=== PATIENT | female | born 1950 | race Caucasian/White ===

== ENCOUNTER 2017-02-17 17:27 | Observation (INO) | payer OTHER ==
[~2017-02-17] VITALS: Ht 160 cm; Wt 82.0 kg
--- NOTE | 2017-02-17 17:58 | EMERGENCY ROOM VISIT NOTE ---
History Report prepared by Bharathi: Purnima Carrizales Under the Supervision of: Dr. Robe Currie M.D. First contact with patient: 17:36 Chief Complaint: CHEST PAIN Stated Complaint: CHEST PAINS Nursing Triage Summary: Pt presents with left sided chest pain intermittent for the past couple days. Worse with exertion. Today pain all day. Denies nausea, sob, dizziness or lightheaded. Took ASA yesterday. Denies recent illness. States has had a cough "for a couple years." History of Present Illness The patient is a 66 year old female who presents to the Emergency Room with complaints of intermittent chest pains for the past few days. Her pain is typically located in the center of her chest and does not radiate anywhere. She does note that one night last week she had pain into her left shoulder and down into her left arm. She states that this only happened once and resolved. Yesterday she noticed that her pain was almost completely alleviated with rest and worsened significantly with any exertion. She has had pain all day today that is worse with any exertion. The patient describes her pain as a pressure and rates it as a 6/10 at its most severe. She denies nausea, shortness of breath, lightheadedness, and dizziness. She reports that she has been under a lot of stress lately. 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 She thinks that this is exacerbating her chest pains as well. The patient called her PCP today and was advised to come to the ED for further evaluation. Source of History: patient Onset: a few days ago Position: chest Symptom Intensity: 6/10 Quality: pressure Timing: intermittent Modifying Factors (Worsening): exertion Modifying Factors (Relieving): rest Associated Symptoms: No SOB, No nausea Note: Pt denies lightheadedness and dizziness. Review of Systems All systems have been listed, reviewed, and are negative other than those previously mentioned. Please see Additional Medical History Sheet. Past Medical & Surgical Medical Problems: (1) Arthritis (2) Chest pain (3) Depression (4) Diaphragmatic hernia (5) Diastolic dysfunction (6) GERD (gastroesophageal reflux disease) (7) Hypertension (8) Mitral regurgitation Surgical Problems: (1) History of appendectomy (2) History of hysterectomy (3) History of lumbar surgery Family History Cancer Diabetes mellitus Gallbladder disease Hypertension Kidney disease Kidney stones Seizures Social History Smoking Status: Never Smoker Smokeless Tobacco Use: No Alcohol Use: none Marital Status: Housing Status: lives with significant other Occupation Status: employed Current/Historical Medications Scheduled Amlodipine (Norvasc), 10 MG PO DAILY Aspirin (Aspirin EC Low Dose), 81 MG PO DAILY Calcium Carbonate-Vitamin D (Calcium + D), 1 TAB PO DAILY Hydrochlorothiazide (Hctz), 25 MG PO DAILY Lisinopril (Lisinopril), 5 MG PO DAILY Omeprazole (Omeprazole), 20 MG PO DAILY Potassium Chloride (Potassium Chloride ER), 20 MEQ PO DAILY Allergies Coded Allergies: No Known Allergies (Unverified , 02/17/17) Physical Exam Vital Signs Date Time Temp Pulse Resp B/P Pulse Ox O2 Delivery O2 Flow Rate FiO2 02/17/17 21:58 36.9 65 20 149/80 96 02/17/17 21:32 149/80 02/17/17 21:21 65 20 96 02/17/17 21:02 144/74 02/17/17 20:51 66 23 97 02/17/17 20:46 153/84 02/17/17 20:32 170/81 02/17/17 20:27 68 21 02/17/17 20:02 167/93 02/17/17 19:57 67 16 02/17/17 19:31 122/71 02/17/17 19:27 66 20 02/17/17 19:20 64 18 152/78 97 Room Air 02/17/17 19:16 152/78 02/17/17 18:27 66 14 02/17/17 18:26 69 02/17/17 18:21 97 Room Air 02/17/17 17:32 36.9 72 18 168/71 97 Room Air Physical Exam GENERAL: Patient awake, alert, oriented x 3. Patient follows commands. Patient does not appear toxic. Patient is adequately hydrated and well- nourished. SKIN: No erythema, pallor, cyanosis or rash HEENT: Normal head, pupils equal, reactive to light and accommodation. Ears normal. Oral cavity and posterior pharynx appear normal. Neck: Without adenopathy, no neck vein distention. LUNGS: Clear to auscultation. No wheezes, no rales, no rhonchi. HEART: No murmurs. No gallops. No rubs ABDOMEN: No masses, no rebound, no hepatomegaly or splenomegaly. EXTREMITIES: No signs of trauma. No pedal or pretibial edema. No calf or thigh tenderness. NEUROLOGIC: Cranial nerves II-XII within normal limits. No gross motor sensory function deficits. Medical Decision & Procedures ER Provider Diagnostic Interpretation: Radiology results as stated below per my review and radiologist interpretation: TWO VIEW CHEST CLINICAL HISTORY: Atypical chest pain. FINDINGS: PA and lateral chest radiographs are obtained. No prior studies are available for comparison at the time of dictation. The cardiomediastinal silhouette is unremarkable. There are low lung volumes with mild bibasilar atelectasis. No airspace consolidation or pleural effusion is seen. There is no pneumothorax. The skeletal structures are osteopenic. Degenerative change is noted throughout the thoracic spine. IMPRESSION: Low lung volumes with no acute cardiopulmonary abnormality. Electronically signed by: Jose A Rashid M.D. 02/17/2017 6:40 PM Dictated Date/Time: 02/17/2017 6:39 PM Laboratory Results 02/17/17 17:55 02/17/17 17:55 Test 02/17/17 17:55 02/17/17 19:29 Red Blood Count 5.00 M/uL (4.2-5.4) Mean Corpuscular Volume 83.6 fL (80-100) Mean Corpuscular Hemoglobin 29.4 pg (25-34) Mean Corpuscular Hemoglobin Concent 35.2 g/dl (32-36) RDW Standard Deviation 40.2 fL (36.4-46.3) RDW Coefficient of Variation 13.3 % (11.5-14.5) Mean Platelet Volume 9.9 fL (7.4-10.4) Activated Partial Thromboplast Time 29.1 SECONDS (21.0-31.0) Partial Thromboplastin Ratio 1.1 Anion Gap 6.0 mmol/L (3-11) Est Creatinine Clear Calc Drug Dose 75.0 ml/min Estimated GFR () 95.6 Estimated GFR (Non- 82.5 BUN/Creatinine Ratio 19.6 (10-20) Calcium Level 9.4 mg/dl (8.5-10.1) Magnesium Level 2.0 mg/dl (1.8-2.4) Total Bilirubin 0.3 mg/dl (0.2-1) Direct Bilirubin 0.1 mg/dl (0-0.2) Aspartate Amino Transf (AST/SGOT) 25 U/L (15-37) Alanine Aminotransferase (ALT/SGPT) 33 U/L (12-78) Alkaline Phosphatase 89 U/L (45-117) Total Protein 8.3 gm/dl (6.4-8.2) Albumin 4.1 gm/dl (3.4-5.0) Lipase 201 U/L (73-393) Bedside Troponin I 0.000 ng/ml (0-0.045) Laboratory results as stated above per my review. ECG Indication: chest pain Rate (beats per minute): 65 Rhythm: normal sinus Findings: no acute ischemic change, no ectopy ED Course 1735: Past medical records reviewed. The patient was evaluated in room B10. A complete history and physical examination was performed. 1954: I reassessed the patient at this time. She is feeling better and resting comfortably. I discussed the results and treatment plan with the patient. I answered all pertaining questions that she had. She expressed understanding and verbalized agreement. 2013: I spoke with Dr. Gonzales. We discussed the patients results and treatment plan. The patient will be evaluated by the [facility] for further management. Medical Decision I considered multiple diagnoses including myocardial infarction, chest wall pain , pericarditis, myocarditis, aortic emergencies, pulmonary embolism, congestive heart failure, GI causes, and other significant cardiopulmonary disorders. Medication Reconciliation: I attest that I have personally reviewed the patient' s current medication list. The patient has substernal chest pain which is worse with any exertion. Multiple labs, EKG and imaging were obtained. Please see above. She has no elevation of her troponin. EKG is not consistent with acute PR. Her history is very concerning for acute coronary syndrome. The patient requires a cardiac stress test. The patient is also dealing mental stress at home as she is taking care of both of her elderly parents. I discussed care with the patient, her and the hospitalist. The patient will require further observation in the hospital and hopefully obtain a stress test tomorrow morning. The patient has already taken aspirin today. Consults Time Called: 2006 Consulting Physician: Dr. Gonzales Returned Call: [address] Gonzales. We discussed the patients results and treatment plan. The patient will be evaluated by the [facility] for further management. Impression Primary Impression: Acute coronary syndrome Scribe Attestation The scribe's documentation has been prepared under my direction and personally reviewed by me in its entirety. I confirm that the note above accurately reflects all work, treatment, procedures, and medical decision making performed by me. Departure Information Dispostion Being Evaluated By Hospitalist Referrals Godwin Manley M.D. (PCP) Patient Instructions [facility]
[2017-02-17 18:06] LABS: HEMATOCRIT 41.8 % (37-47); MEAN CELL VOLUME 83.6 fL (80-100); MEAN CORPUSCULAR HEMOGLOBIN 29.4 pg (25-34); MEAN CORPUSCULAR HGB CONC 35.2 g/dl (32-36); MEAN PLATELET VOLUME 9.9 fL (7.4-10.4); PLATELET COUNT 281 K/uL (130-400); WHITE BLOOD COUNT 7.33 K/uL (4.8-10.8)
[2017-02-17] MEDS ORDERED: POTASSIUM CHLORIDE PO (18:25)
[2017-02-17] MEDS ORDERED: HYDR25TA4 PO (18:25)
[2017-02-17] MEDS ORDERED: LSN20 PO (18:25)
[2017-02-17] MEDS ORDERED: OMEP20TA PO (18:25)
[2017-02-17] MEDS ORDERED: AMLODIPINE PO (18:25)
[2017-02-17 18:32] LABS: BUN/CREATININE RATIO 19.6 (10-20); CALCIUM 9.4 mg/dl (8.5-10.1); CREATININE 0.75 mg/dl (0.60-1.20); POTASSIUM 3.8 mmol/L (3.5-5.1)
--- NOTE | 2017-02-17 18:41 | DIAGNOSTIC IMAGING REPORT ---
TWO VIEW CHEST CLINICAL HISTORY: Atypical chest pain. FINDINGS: PA and lateral chest radiographs are obtained. No prior studies are available for comparison at the time of dictation. The cardiomediastinal silhouette is unremarkable. There are low lung volumes with mild bibasilar atelectasis. No airspace consolidation or pleural effusion is seen. There is no pneumothorax. The skeletal structures are osteopenic. Degenerative change is noted throughout the thoracic spine. IMPRESSION: Low lung volumes with no acute cardiopulmonary abnormality. Electronically signed by: Jose A Rashid M.D. 02/17/2017 6:40 PM Dictated Date/Time: 02/17/2017 6:39 PM
[2017-02-17 20:50] LABS: PARTIAL THROMBOPLASTIN RATIO 1.1
[2017-02-17] MEDS ORDERED: POTA-65 PO (20:52)
[2017-02-17] MEDS ORDERED: ASPEC81 PO (20:52)
[2017-02-17] MEDS ORDERED: CALC600T9 PO (20:52)
[2017-02-17] MEDS ORDERED: AMLO-114 PO (20:52)
[2017-02-17] MEDS ORDERED: LSN5 PO (20:52)
--- NOTE | 2017-02-17 21:13 | History and Physical ---
History & Physical Date & Time of Service: February 17, 2017 at 20:52 Chief Complaint: Chest Pains Primary Care Physician: Godwin Manley M.D. History of Present Illness Source: patient, spouse ( at bedside), clinic records This is a 66 y/o female with PMH of hypertension, GERD, and other problems listed below who presents to the ED with chest pain. Patient states chest pain started 3-4 days ago. She describes pain as heaviness in the left chest. Pain radiated to her left arm a few days ago. Pain was initially intermittent occurring only with exertion and relieved with rest, but today has been present most of the day even at rest. She rates pain 3/10 at present. 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 She has a chronic nonproductive cough. Able to climb 1 set of stairs without CABRERA. She denies diaphoresis, dizziness, URI symptoms, SOB, reflux, N/V, change in bowel or bladder movements, calf pain, edema, rash, abnormal bleeding. No heavy lifting. No recent travel. No hx CAD. Prior nuclear stress test negative in 01/2014. Has knee arthritis. Past Medical/Surgical History Medical Problems: (1) Arthritis Permanent Comment: knee Status: Chronic (2) Depression Status: Chronic (3) Diaphragmatic hernia Status: Chronic (4) GERD (gastroesophageal reflux disease) Status: Chronic (5) Hypertension Status: Chronic (6) Mitral regurgitation Permanent Comment: mild on echo 02/14/2014 Status: Chronic Surgical Problems: (1) History of appendectomy Status: Resolved (2) History of hysterectomy Status: Chronic (3) History of lumbar surgery Status: Chronic Family History Cancer Diabetes mellitus Gallbladder disease Hypertension Kidney disease Kidney stones Seizures Father had cardiac arrest at elderly age- survived. Social History Smoking Status: Never Smoker Smokeless Tobacco Use: No Alcohol Use: none Drug Use: none Marital Status: Occupational Status: employed Allergies Coded Allergies: No Known Allergies (Unverified , 02/17/17) Home Medications Scheduled Amlodipine (Norvasc), 10 MG PO DAILY Aspirin (Aspirin EC Low Dose), 81 MG PO DAILY Calcium Carbonate-Vitamin D (Calcium + D), 1 TAB PO DAILY Hydrochlorothiazide (Hctz), 25 MG PO DAILY Lisinopril (Lisinopril), 5 MG PO DAILY Omeprazole (Omeprazole), 20 MG PO DAILY Potassium Chloride (Potassium Chloride ER), 20 MEQ PO DAILY Review of Systems Ten systems reviewed and negative except as noted in HPI. Physical Exam Vital Signs Date Time Temp Pulse Resp B/P Pulse Ox O2 Delivery O2 Flow Rate FiO2 02/17/17 20:46 153/84 02/17/17 20:32 170/81 02/17/17 20:27 68 21 02/17/17 20:02 167/93 02/17/17 19:57 67 16 02/17/17 19:31 122/71 02/17/17 19:27 66 20 02/17/17 19:20 64 18 152/78 97 Room Air 02/17/17 19:16 152/78 02/17/17 18:27 66 14 02/17/17 18:26 69 02/17/17 18:21 97 Room Air 02/17/17 17:32 36.9 72 18 168/71 97 Room Air General Appearance: WD/WN, no apparent distress, + pertinent finding (alert cooperative 66 F) Head: normocephalic, atraumatic Eyes: normal inspection, sclerae normal ENT: hearing grossly normal, pharynx normal Neck: supple Respiratory/Chest: chest non-tender, lungs clear, normal breath sounds, no respiratory distress, no accessory muscle use Cardiovascular: regular rate, rhythm, no JVD, no murmur, normal peripheral pulses Abdomen/GI: normal bowel sounds, non tender, soft Extremities/Musculoskelatal: no calf tenderness, no pedal edema Neurologic/Psych: alert, normal mood/affect, oriented x 3, + pertinent finding (no focal deficit on gross examination) Skin: normal color, warm/dry, no rash (no rash on the chest) Diagnostics Laboratory Results Results Past 24 Hours Test 02/17/17 17:55 02/17/17 18:00 02/17/17 19:29 Range/Units White Blood Count 7.33 4.8-10.8 K/uL Red Blood Count 5.00 4.2-5.4 M/uL Hemoglobin 14.7 12.0-16.0 g/dL Hematocrit 41.8 37-47 % Mean Corpuscular Volume 83.6 80-100 fL Mean Corpuscular Hemoglobin 29.4 25-34 pg Mean Corpuscular Hemoglobin Concent 35.2 32-36 g/dl RDW Standard Deviation 40.2 36.4-46.3 fL RDW Coefficient of Variation 13.3 11.5-14.5 % Platelet Count 281 130-400 K/uL Mean Platelet Volume 9.9 7.4-10.4 fL Activated Partial Thromboplast Time 29.1 21.0-31.0 SECONDS Partial Thromboplastin Ratio 1.1 Sodium Level 139 136-145 mmol/L Potassium Level 3.8 3.5-5.1 mmol/L Chloride Level 103 98-107 mmol/L Carbon Dioxide Level 30 21-32 mmol/L Anion Gap 6.0 3-11 mmol/L Blood Urea Nitrogen 15 7-18 mg/dl Creatinine 0.75 0.60-1.20 mg/dl Est Creatinine Clear Calc Drug Dose 75.0 ml/min Estimated GFR () 95.6 Estimated GFR (Non- 82.5 BUN/Creatinine Ratio 19.6 10-20 Random Glucose 99 70-99 mg/dl Calcium Level 9.4 8.5-10.1 mg/dl Bedside Troponin I 0.000 0.000 0-0.045 ng/ml Diagnostic Radiology TWO VIEW CHEST CLINICAL HISTORY: Atypical chest pain. FINDINGS: PA and lateral chest radiographs are obtained. No prior studies are available for comparison at the time of dictation. The cardiomediastinal silhouette is unremarkable. There are low lung volumes with mild bibasilar atelectasis. No airspace consolidation or pleural effusion is seen. There is no pneumothorax. The skeletal structures are osteopenic. Degenerative change is noted throughout the thoracic spine. IMPRESSION: Low lung volumes with no acute cardiopulmonary abnormality. EKG NSR, 65 bpm, nonspecific T wave inversion in III- also seen on prior EKG scanned in [facility] Impression Assessment and Plan CHEST PAIN R/o ACS; risk factor- HTN; ddx also includes anxiety Initial POC troponin negative EKG- NSR, nonspecific T wave inversion in III- chronic CXR- no acute findings Monitor in telemetry Trend serial cardiac enzymes Possible stress test in AM HYPERTENSION BP elevated to 170s systolic in ER-> improved to 150s Possibly due to underlying anxiety plus stress of being in ER Has been compliant with meds Continue amlodipine 10 mg daily, HCTZ 25 mg daily, lisinopril 5 mg daily Monitor BP, titrate meds as needed ANXIETY Triggered by stressor of being caregiver for her elderly parents- father is complex medically, recently hospitalized, has difficult personality per patient GERD Controlled; continue PPI DISPOSITION Lives w/ Follows with Dr. Motta for primary care Patient seen in collaboration with Dr. Gonzales. Please see his addendum for further recommendations. Assessment/Plan IM ATTENDING : Patient seen and examined. Hx obtained from px and records. Preceding documentation by Ms. Cheryl Singh PA-C, reviewed. FINAL ASSESSMENT AND PLAN as follows: 1. Chest pain multifactorial : hypertensive urgency anxiety, stress. Rule out acute coronary syndrome 2. mood disorder suboptimal currently not on meds good response to Celexa in the past Observation PCU analgesia, anxiolytic prn may need to increase blood pressure meds dose to control BP Patient agreeable to restarting Celexa for mood issues. Stress test in the morning if AM troponin normal. DVT prophylaxis, Lovenox SQ. Full code.
[2017-02-17] MEDS ORDERED: IV FLUIDS COMPLETED PRN (21:45)
[2017-02-17] MEDS ORDERED: ACETAMINOPHEN 325 MG TAB PO PRN (22:00)
[2017-02-17] MEDS ORDERED: ONDANSETRON INJ 2 MG/ML 2 ML VIAL IV PRN (22:00)
[2017-02-17] MEDS ORDERED: NITROGLYCERIN 0.4 MG SL PER TAB CHARGE SL PRN (22:00)
[2017-02-17] MEDS ORDERED: MoRPHine SULFATE 4 MG/ML 1 ML CARP\\VIAL IV PRN (22:00)
[2017-02-17] MEDS ORDERED: LORAZEPAM 2 MG/ML 1 ML VIAL IV PRN (22:00)
[2017-02-17 22:29] VITALS: BP 174/84; PULSE 71; TEMP 36.6; O2SAT 96; Ht 160 cm; Wt 82.0 kg
--- NOTE | 2017-02-17 23:18 | HISTORY & PHYSICAL EXAMINATION ---
DATE OF ADMISSION: 02/17/2017 IM ATTENDING : Patient seen and examined. Hx obtained from px and records. Preceding documentation by Ms. Cheryl Signh PA-C, reviewed. FINAL ASSESSMENT AND PLAN as follows: 1. Chest pain multifactorial : hypertensive urgency anxiety, stress. Rule out acute coronary syndrome 2. mood disorder suboptimal currently not on meds good response to Celexa in the past Observation PCU analgesia, anxiolytic prn may need to increase blood pressure meds dose to control BP Patient agreeable to restarting Celexa for mood issues. Stress test in the morning if AM troponin normal. DVT prophylaxis, Lovenox SQ. Full code. MTDD
[2017-02-17 23:52] LABS: PROTHROMBIN TIME (PATIENT) 10.8 SECONDS (9.0-12.0)
[2017-02-18 00:06] VITALS: BP 131/74; PULSE 63; TEMP 36.5; O2SAT 96
[2017-02-18 03:59] VITALS: BP 135/66; PULSE 63; TEMP 36.6; O2SAT 96
[2017-02-18 04:38] LABS: BASO % 0.2 %; BASO ABS # 0.01 K/uL (0-0.2); COMPLETE YES; EOS % 3.8 %; HEMATOCRIT 39.6 % (37-47); IG% 0.2 %; LYMPH % 36.2 %; LYMPH ABS # 2.17 K/uL (1.2-3.4); MEAN CELL VOLUME 83.9 fL (80-100); MEAN CORPUSCULAR HEMOGLOBIN 28.6 pg (25-34); MEAN CORPUSCULAR HGB CONC 34.1 g/dl (32-36); MEAN PLATELET VOLUME 10.1 fL (7.4-10.4); NEUT % 50.6 %; PLATELET COUNT 258 K/uL (130-400); RED BLOOD COUNT 4.72 M/uL (4.2-5.4); WHITE BLOOD COUNT 5.99 K/uL (4.8-10.8)
[2017-02-18 04:56] LABS: CHOLESTEROL 168 mg/dl (0-200); CHOLESTEROL/HDL RATIO 3.6; HDL CHOLESTEROL 47 mg/dl; LDL CHOLESTEROL CALCULATED 96 mg/dl; TRIGLYCERIDES 124 mg/dl (0-150); VERY LOW DENSITY LIPOPROT CALC 25 mg/dl
[2017-02-18 07:27] VITALS: BP 131/73; PULSE 63; TEMP 36.6; O2SAT 96
[2017-02-18 07:30] LABS: URINE APPEARANCE CLEAR (CLEAR); URINE BILIRUBIN NEG (NEG); URINE COLOR YELLOW; URINE EPITHELIAL CELL AUTO 20-30 /lpf (0-5); URINE NITRITE NEG (NEG); URINE SPECIFIC GRAVITY 1.015 (1.000-1.030); UROBILINOGEN NEG (NEG)
[2017-02-18 07:36] LABS: MANUAL MICROSCOPIC REQUIRED? NO; REVIEW REQ? NO
[2017-02-18 08:00] VITALS: O2SAT 96
[2017-02-18] MEDS ORDERED: PANTOprazole SOD 40 MG TAB PO SCH (09:00)
[2017-02-18] MEDS ORDERED: HYDROCHLOROTHIAZIDE 25 MG TAB PO SCH ×2 (09:00)
[2017-02-18] MEDS ORDERED: LISINOPRIL 5 MG TAB PO SCH (09:00)
[2017-02-18] MEDS ORDERED: CITALOPRAM 20 MG TAB PO SCH (09:00)
[2017-02-18] MEDS ORDERED: ENOXAPARIN 40 MG/0.4 ML SYR SC SCH (09:00)
[2017-02-18] MEDS ORDERED: ASPIRIN 81 MG ECTAB PO SCH (09:00)
[2017-02-18] MEDS ORDERED: AMLODIPINE BESYLATE 5 MG TAB PO SCH (09:00)
--- NOTE | 2017-02-18 10:52 | EXERCISE STRESS ECHO ---
*NOTICE TO RECEIVING [employer] This information is strictly Confidential and protected under [place] law. [place] law prohibits you from making any further disclosure of this information unless further disclosure is expressly permitted by the written consent of the person to whom it pertains or is authorized by law. A general authorization for the release of medical or other information is not sufficient for this purpose. Hospital accepts no responsibility if the information is made available to any other person, INCLUDING THE PATIENT. Interpretation Summary * Name: HARI BALLARD Study Date: 02/18/2017 08:00 AM BP: 139/79 mmHg * Patient Location: C.2T\S\S242\S\2 HR: 59 * : 1950 (M/d/yyy) Gender: Female Height: 63 in * Age: 66 yrs Ethnicity: [place] Weight: 180 lb * Ordering Physician: Aly Gonzales * Referring Physician: JOHNNY * Performed By: Aruna Kelly RDCS * * Reason For Study: CHEST PAIN * BSA: 1.8 m2 * History: CHEST PAIN * -- Conclusions -- * STRESS STUDY: * Normal exercise stress echocardiogram. * No echocardiographic or ECG evidence of myocardial ischemia having achieved heart rate adequate for diagnostic purposes. * The patient reported 3/10 chest discomfort early in stage II that was not progressive with increased exercise and was atypical in character for angina. * RESTING STUDY: * The LV Ejection Fraction = 60-65%. * The right ventricle is normal in size and function. * The left atrium is mildly dilated. * There is mild mitral regurgitation. * There is mild tricuspid regurgitation. * Doppler findings do not suggest pulmonary hypertension. * Grade I diastolic dysfunction, (abnormal relaxation pattern). * There is a 4.9 cm x 4.8 cm echo free area in the liver , possibly compatible with a hepatic cyst. If not previously characterized would recommend dedicated imaging study for further evaluation. Procedure Details * ECHOEX, CPT #[id number] * ECHO DOPPLER, CPT #[id number] * ECHO COLOR FLOW, CPT #[id number] Left Ventricle * The left ventricle is normal in size. * There is normal left ventricular wall thickness. * Left ventricular systolic function is normal. * Ejection Fraction = 60-65%. * Resting wall motion: Normal. Stress wall motion: Appropriate increase in Left ventricular systolic function and decrease in cavity size. No stress induced segmental wall motion abnormalities. Right Ventricle * The right ventricle is normal in size and function. Atria * The left atrium is mildly dilated. * Right atrial size is normal. * No ASD detected; PFO is not assessed. Mitral Valve * The mitral valve is normal. * There is no mitral valve stenosis. * There is mild mitral regurgitation. Tricuspid Valve * The tricuspid valve is normal. * There is no tricuspid stenosis. * There is mild tricuspid regurgitation. * Doppler findings do not suggest pulmonary hypertension. Aortic Valve * The aortic valve is trileaflet. * No hemodynamically significant valvular aortic stenosis. * No aortic regurgitation is present. Pulmonic Valve * The pulmonic valve is not well visualized. Great Vessels * The aortic root is normal size. Pericardium * There is no pericardial effusion. Stress Parameters * Normal baseline electrocardiogram. * The stress ECG response was normal * No arrhythmia were noted with stress. * The heart rate response to exercise was normal. The blood pressure response to exercise was normal. The patient reported 3/10 chest discomfort early in stage II that was not progressive with increased exercise and was atypical in character for angina. * The stress portion of this study was personally supervised by the undersigned interpreting physician. * Rest heart rate was '59' BPM. * Rest blood pressure was '139/79' * Maximum heart rate achieved was 157 bpm. * Maximum heart rate was 102 % of maximum age-predicted heart rate. * Maximum blood pressure was '191/87' * Total exercise time was '9:16' * Maximum exercise MET level achieved was '8.50' METS * Maximum treadmill speed was '2.50' miles per hour. * Maximum treadmill elevation was '16.00'% grade. * Exercise was terminated due to 'ACHIEVING TARGET HR' Left Ventricular Diastolic Function * Grade I diastolic dysfunction, (abnormal relaxation pattern). MMode 2D Measurements and Calculations IVSd 1.2 cm IVSs 1.4 cm LVIDd 4.9 cm LVIDs 3.2 cm LVPWd 0.82 cm LVPWs 1.6 cm IVS/LVPW 1.5 FS 34.7 % EDV(Teich) 114.0 ml ESV(Teich) 41.3 ml EF(Teich) 63.7 % EDV(cubed) 119.2 ml ESV(cubed) 33.1 ml EF(cubed) 72.2 % % IVS thick 17.1 % % LVPW thick 94.5 % LV mass(C)d 182.6 grams LV mass(C)dI 98.7 grams/m\S\2 LV mass(C)s 175.0 grams LV mass(C)sI 94.6 grams/m\S\2 SV(Teich) 72.7 ml SI(Teich) 39.3 ml/m\S\2 SV(cubed) 86.1 ml SI(cubed) 46.6 ml/m\S\2 Ao root diam 2.9 cm Ao root area 6.4 cm\S\2 LA dimension 4.2 cm LA/Ao 1.5 LVAd ap4 31.5 cm\S\2 LVLd ap4 8.1 cm EDV(MOD-sp4) 102.9 ml EDV(sp4-el) 104.6 ml LVAs ap4 16.8 cm\S\2 LVLs ap4 6.5 cm ESV(MOD-sp4) 37.0 ml ESV(sp4-el) 36.7 ml EF(MOD-sp4) 64.0 % EF(sp4-el) 64.9 % LVAd ap2 29.0 cm\S\2 LVLd ap2 7.8 cm EDV(MOD-sp2) 90.3 ml EDV(sp2-el) 91.3 ml LVAs ap2 16.9 cm\S\2 LVLs ap2 6.7 cm ESV(MOD-sp2) 38.4 ml ESV(sp2-el) 36.1 ml EF(MOD-sp2) 57.4 % EF(sp2-el) 60.4 % LVLd %diff -3.17 % EDV(MOD-bp) 98.4 ml LVLs %diff 3.1 % ESV(MOD-bp) 37.7 ml EF(MOD-bp) 61.7 % SV(MOD-sp4) 65.8 ml SI(MOD-sp4) 35.6 ml/m\S\2 SV(MOD-sp2) 51.8 ml SI(MOD-sp2) 28.0 ml/m\S\2 SV(MOD-bp) 60.7 ml SI(MOD-bp) 32.8 ml/m\S\2 SV(sp4-el) 67.9 ml SI(sp4-el) 36.7 ml/m\S\2 SV(sp2-el) 55.2 ml SI(sp2-el) 29.8 ml/m\S\2 Doppler Measurements and Calculations MV E max amy 69.8 cm/sec MV A max amy 100.4 cm/sec MV E/A 0.70 MV dec time 0.26 sec Ao V2 max 142.5 cm/sec Ao max PG 8.1 mmHg Ao max PG (full) 4.5 mmHg LV V1 max PG 3.6 mmHg LV V1 max 95.1 cm/sec TR max amy 212.8 cm/sec
--- NOTE | 2017-02-18 10:59 | Progress Note ---
Medicine Progress Note Date & Time of Visit: February 18, 2017 at 10:59 . Subjective No further chest pain. No shortness of breath. No abdominal pain, nausea, vomiting. No symptoms during treadmill stress echo. . Objective Last 8 Hrs Date Time Temp Pulse Resp B/P Pulse Ox O2 Delivery O2 Flow Rate FiO2 02/18/17 08:00 96 Room Air 02/18/17 07:27 36.6 63 20 131/73 96 Room Air 02/18/17 04:00 Room Air 02/18/17 03:59 36.6 63 18 135/66 96 Room Air Physical Exam: General- no distress Neck- no JVD Lungs- clear to auscultation Heart- regular, no gallop Abdomen- normal bowel sounds, soft, nontender Extremities- no pretibial edema or calf tenderness Neuro- alert, oriented . Laboratory Results: Last 24 Hours Test 02/17/17 17:55 02/17/17 18:00 02/17/17 19:29 02/18/17 04:06 White Blood Count 7.33 K/uL 5.99 K/uL Red Blood Count 5.00 M/uL 4.72 M/uL Hemoglobin 14.7 g/dL 13.5 g/dL Hematocrit 41.8 % 39.6 % Mean Corpuscular Volume 83.6 fL 83.9 fL Mean Corpuscular Hemoglobin 29.4 pg 28.6 pg Mean Corpuscular Hemoglobin Concent 35.2 g/dl 34.1 g/dl RDW Standard Deviation 40.2 fL 39.9 fL RDW Coefficient of Variation 13.3 % 13.2 % Platelet Count 281 K/uL 258 K/uL Mean Platelet Volume 9.9 fL 10.1 fL Prothrombin Time 10.8 SECONDS Prothromb Time International Ratio 1.0 Activated Partial Thromboplast Time 29.1 SECONDS Partial Thromboplastin Ratio 1.1 Sodium Level 139 mmol/L Potassium Level 3.8 mmol/L Chloride Level 103 mmol/L Carbon Dioxide Level 30 mmol/L Anion Gap 6.0 mmol/L Blood Urea Nitrogen 15 mg/dl Creatinine 0.75 mg/dl Est Creatinine Clear Calc Drug Dose 75.0 ml/min Estimated GFR () 95.6 Estimated GFR (Non- 82.5 BUN/Creatinine Ratio 19.6 Random Glucose 99 mg/dl Calcium Level 9.4 mg/dl Magnesium Level 2.0 mg/dl Total Bilirubin 0.3 mg/dl Direct Bilirubin 0.1 mg/dl Aspartate Amino Transf (AST/SGOT) 25 U/L Alanine Aminotransferase (ALT/SGPT) 33 U/L Alkaline Phosphatase 89 U/L Total Protein 8.3 gm/dl Albumin 4.1 gm/dl Lipase 201 U/L Hepatitis C Antibody Screen NEG Bedside Troponin I 0.000 ng/ml 0.000 ng/ml Neutrophils (%) (Auto) 50.6 % Lymphocytes (%) (Auto) 36.2 % Monocytes (%) (Auto) 9.0 % Eosinophils (%) (Auto) 3.8 % Basophils (%) (Auto) 0.2 % Neutrophils # (Auto) 3.03 K/uL Lymphocytes # (Auto) 2.17 K/uL Monocytes # (Auto) 0.54 K/uL Eosinophils # (Auto) 0.23 K/uL Basophils # (Auto) 0.01 K/uL Immature Granulocyte % (Auto) 0.2 % Immature Granulocyte # (Auto) 0.01 K/uL Troponin I < 0.015 ng/ml Triglycerides Level 124 mg/dl Cholesterol Level 168 mg/dl HDL Cholesterol 47 mg/dl LDL Cholesterol, Calculated 96 mg/dl VLDL Cholesterol, Calculated 25 mg/dl Cholesterol/HDL Ratio 3.6 Test 02/18/17 07:15 Urine Color YELLOW Urine Appearance CLEAR Urine pH 6.0 Urine Specific [place] 1.015 Urine Protein NEG Urine Glucose (UA) NEG Urine Ketones NEG Urine Occult Blood TRACE Urine Nitrite NEG Urine Bilirubin NEG Urine Urobilinogen NEG Urine Leukocyte Esterase NEG Urine WBC (Auto) 1-5 /hpf Urine RBC (Auto) 0-4 /hpf Urine Hyaline Casts (Auto) 1-5 /lpf Urine Epithelial Cells (Auto) 20-30 /lpf Urine Bacteria (Auto) NEG Assessment & Plan CHEST PAIN Acute AR ruled out. Treadmill stress echo performed without stress-induced ischemia. Low clinical suspicion for pulmonary embolism. Significant stress related to demands of caring for her elderly parents. Consider GI evaluation if symptoms recur. APPARENT HEPATIC CYST Apparent hepatic cyst noted during echocardiogram. LFTs were normal. Dedicated outpatient ultrasound of liver recommended. HYPERTENSION Blood pressure moderately elevated in ED, but subsequently improved. Blood pressure the morning of discharge was 131/73. Continue hydrochlorothiazide, lisinopril, amlodipine. ANXIETY / DEPRESSION Significant emotional stress related to demands of caring for her elderly parents. SSRI considered; patient would like to discuss further with her PCP. VTE PROPHYLAXIS Received enoxaparin. Ambulating. DISPOSITION Discharge to home. Family Medicine follow-up with Dr. Manley. . Procedures: Cardiac monitoring Treadmill stress echocardiogram . Current Inpatient Medications: Current Inpatient Medications Medications (Trade) Dose Ordered Sig/Pieter Route Start Time Stop Time Status Last Admin Dose Admin Miscellaneous (Iv Fluids Completed) 1 ea PRN PRN N/A 02/17/17 21:45 02/17/18 21:44 Citalopram Hydrobromide (celeXA TAB) 20 mg QAM PO 02/18/17 09:00 03/20/17 08:59 02/18/17 07:29 20 MG Enoxaparin Sodium (Lovenox Inj) 40 mg Q24H SC 02/18/17 09:00 03/20/17 08:59 02/18/17 07:29 40 MG Acetaminophen (Tylenol Tab) 650 mg Q4H PRN PO 02/17/17 22:00 03/19/17 21:59 Nitroglycerin (Nitrostat Tab) 0.4 mg UD PRN SL 02/17/17 22:00 03/19/17 21:59 Amlodipine Besylate (Norvasc Tab) 10 mg DAILY PO 02/18/17 09:00 03/20/17 08:59 02/18/17 07:29 10 MG Lisinopril (Zestril Tab) 5 mg DAILY PO 02/18/17 09:00 03/20/17 08:59 02/18/17 07:28 5 MG Pantoprazole Sodium (Protonix Tab) 40 mg QAM PO 02/18/17 09:00 03/20/17 08:59 02/18/17 07:29 40 MG Hydrochlorothiazide (Hydrochlorothiazide Tab) 25 mg DAILY PO 02/18/17 09:00 03/20/17 08:59 02/18/17 07:28 25 MG Aspirin (Ecotrin Tab) 81 mg DAILY PO 02/18/17 09:00 03/20/17 08:59 02/18/17 07:29 81 MG Morphine Sulfate (MoRPHine SULFATE INJ) 4 mg Q3H PRN IV 02/17/17 22:00 03/03/17 21:59 Ondansetron HCl (Zofran Inj) 4 mg Q6H PRN IV 02/17/17 22:00 03/19/17 21:59 Lorazepam (Ativan Inj) 0.5 mg Q4H PRN IV 02/17/17 22:00 03/19/17 21:59
--- NOTE | 2017-02-18 11:11 | Discharge Instructions ---
Discharge Instructions Date of Service February 18, 2017. Admission Admission Reason: chest pain . Discharge Discharge Diagnosis / Problem: chest pain - no sign of heart attack Discharge Goals Goal(s): Decrease discomfort Activity Recommendations Activity Limitations: resume your previous activity . Instructions / Follow-Up Instructions / Follow-Up FOLLOW-UP APPOINTMENT: FAMILY MEDICINE 03/02/2017 12:40 PM Godwin Manley MD DISCHARGE INSTRUCTIONS: There was no sign of a heart attack. There was no sign of blocked coronary arteries on stress test. Ultrasound pictures during stress test showed what appeared to be a cyst in the liver. Outpatient ultrasound of liver recommended- please have Dr. Manley arrange. Consider restarting medication for depression. Please discuss further with Dr. Manley. Seek medical attention if you have: * chest pain or trouble breathing * abdominal pain, nausea, vomiting * diarrhea, dark stools or bloody stools * any unanswered questions or concerns Call 911 if symptoms are severe. Call if you have any questions or problems. My cell # is [phone]. You can also reach a [facility] hospitalist on duty at [facility] 24 hours a day by calling [phone]. Please take good care of yourself. Morales Morales . Current Hospital Diet Patient's current hospital diet: AHA Diet (Heart Healthy) Discharge Diet Recommended Diet: AHA Diet (Heart Healthy) Pending Studies Studies pending at discharge: yes (outpatient ultrasound of liver to be arranged) List of pending studies: ultrasound of liver to be arranged Laboratory Results Lipid Panel Test 02/18/17 04:06 Range/Units Triglycerides Level 124 0-150 mg/dl Cholesterol Level 168 0-200 mg/dl HDL Cholesterol 47 mg/dl Cholesterol/HDL Ratio 3.6 LDL Cholesterol, Calculated 96 mg/dl Medical Emergencies . Who to Call and When: Medical Emergencies: If at any time you feel your situation is an emergency, please call 911 immediately. . Non-Emergent Contact Non-Emergency issues call your: Primary Care Provider, Hospital Doctor . . "Provider Documentation" section prepared by Morales Morales. . VTE Core Measure Inpt VTE Proph given/why not?: Enoxaparin (Lovenox)SQ
[2017-02-18 11:20] VITALS: BP 131/73; PULSE 63; TEMP 36.6; O2SAT 96
--- NOTE | 2017-02-18 22:08 | Discharge Summary ---
Discharge Summary Date of Service February 18, 2017. Discharge Summary Admission Date: February 17, 2017 at 21:16 Discharge Date: February 18, 2017 Principal Diagnosis: chest pain, probably noncardiac . Secondary Diagnoses/Problems: Chronic and Resolved Medical Problems: (1) Arthritis Permanent Comment: knee Status: Chronic (2) Depression Status: Chronic (3) Diaphragmatic hernia Status: Chronic (4) GERD (gastroesophageal reflux disease) Status: Chronic (5) Hypertension Status: Chronic (6) Mitral regurgitation Permanent Comment: mild on echo 02/14/2014 Status: Chronic Surgical Problems: (1) History of appendectomy Status: Resolved (2) History of hysterectomy Status: Chronic (3) History of lumbar surgery Status: Chronic . Procedures: Cardiac monitoring Treadmill stress echocardiogram . Pending Studies/Follow-Up: Please arrange for outpatient ultrasound of liver re: hepatic cyst. . Medication Reconciliation Continued Medications: Amlodipine (Norvasc) 10 Mg Tab 10 MG PO DAILY, TAB Aspirin (Aspirin EC Low Dose) 81 Mg Ectab 81 MG PO DAILY Calcium Carbonate-Vitamin D (Calcium + D) 1 Tab Tab 1 TAB PO DAILY Hydrochlorothiazide (Hctz) 25 Mg Tab 25 MG PO DAILY, TAB Lisinopril (Lisinopril) 5 Mg Tab 5 MG PO DAILY Omeprazole (Omeprazole) 20 Mg Tab 20 MG PO DAILY, TAB 3 Refills Potassium Chloride (Potassium Chloride ER) 20 Meq Tab 20 MEQ PO DAILY Admission Information HPI (per Admitting provider): This is a 66 y/o female with PMH of hypertension, GERD, and other problems listed below who presents to the ED with chest pain. Patient states chest pain started 3-4 days ago. She describes pain as heaviness in the left chest. Pain radiated to her left arm a few days ago. Pain was initially intermittent occurring only with exertion and relieved with rest, but today has been present most of the day even at rest. She rates pain 3/10 at present. 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 She has a chronic nonproductive cough. Able to climb 1 set of stairs without CABRERA. She denies diaphoresis, dizziness, URI symptoms, SOB, reflux, N/V, change in bowel or bladder movements, calf pain, edema, rash, abnormal bleeding. No heavy lifting. No recent travel. No hx CAD. Prior nuclear stress test negative in 01/2014. Has knee arthritis. Physical Exam (per Admitting): General Appearance: WD/WN, no apparent distress, + pertinent finding (alert cooperative 66 F) Head: normocephalic, atraumatic Eyes: normal inspection, sclerae normal ENT: hearing grossly normal, pharynx normal Neck: supple Respiratory/Chest: chest non-tender, lungs clear, normal breath sounds, no respiratory distress, no accessory muscle use Cardiovascular: regular rate, rhythm, no JVD, no murmur, normal peripheral pulses Abdomen/GI: normal bowel sounds, non tender, soft Extremities/Musculoskelatal: no calf tenderness, no pedal edema Neurologic/Psych: alert, normal mood/affect, oriented x 3, + pertinent finding (no focal deficit on gross examination) Skin: normal color, warm/dry, no rash (no rash on the chest) Hospital Course CHEST PAIN Acute OR ruled out. Treadmill stress echo performed without stress-induced ischemia. Low clinical suspicion for pulmonary embolism. Significant stress related to demands of caring for her elderly parents. History of hiatal hernia & GERD. Consider further GI evaluation if symptoms recur. HIATAL HERNIA / GERD Continue PPI. APPARENT HEPATIC CYST Apparent hepatic cyst noted during echocardiogram. LFTs were normal. Dedicated outpatient ultrasound of liver recommended. HYPERTENSION Blood pressure moderately elevated in ED, but subsequently improved. Blood pressure the morning of discharge was 131/73. Continue hydrochlorothiazide, lisinopril, amlodipine. ANXIETY / DEPRESSION Significant emotional stress related to demands of caring for her elderly parents. SSRI considered; patient would like to discuss further with her PCP. VTE PROPHYLAXIS Received enoxaparin. Ambulating. DISPOSITION Discharge to home. Family Medicine follow-up with Dr. Manley. . Discharge Instructions Date of Service February 18, 2017. Admission Admission Reason: chest pain . Discharge Discharge Diagnosis / Problem: chest pain - no sign of heart attack Discharge Goals Goal(s): Decrease discomfort Activity Recommendations Activity Limitations: resume your previous activity . Instructions / Follow-Up Instructions / Follow-Up FOLLOW-UP APPOINTMENT: FAMILY MEDICINE 03/02/2017 12:40 PM Godwin Manley MD DISCHARGE INSTRUCTIONS: There was no sign of a heart attack. There was no sign of blocked coronary arteries on stress test. Ultrasound pictures during stress test showed what appeared to be a cyst in the liver. Outpatient ultrasound of liver recommended- please have Dr. Manley arrange. Consider restarting medication for depression. Please discuss further with Dr. Manley. Seek medical attention if you have: * chest pain or trouble breathing * abdominal pain, nausea, vomiting * diarrhea, dark stools or bloody stools * any unanswered questions or concerns Call 911 if symptoms are severe. Call if you have any questions or problems. My cell # is [phone]. You can also reach a [facility] hospitalist on duty at [facility] 24 hours a day by calling [phone]. Please take good care of yourself. Morales Morales . Current Hospital Diet Patient's current hospital diet: AHA Diet (Heart Healthy) Discharge Diet Recommended Diet: AHA Diet (Heart Healthy) Pending Studies Studies pending at discharge: yes (outpatient ultrasound of liver to be arranged) List of pending studies: ultrasound of liver to be arranged Laboratory Results Lipid Panel Test 02/18/17 04:06 Range/Units Triglycerides Level 124 0-150 mg/dl Cholesterol Level 168 0-200 mg/dl HDL Cholesterol 47 mg/dl Cholesterol/HDL Ratio 3.6 LDL Cholesterol, Calculated 96 mg/dl Medical Emergencies . Who to Call and When: Medical Emergencies: If at any time you feel your situation is an emergency, please call 911 immediately. . Non-Emergent Contact Non-Emergency issues call your: Primary Care Provider, Hospital Doctor . . "Provider Documentation" section prepared by Morales Morales. . VTE Core Measure Inpt VTE Proph given/why not?: Enoxaparin (Lovenox)SQ
== END 2017-02-18 11:36 | disposition home or self-care (01) ==
LOC: ENRESERVTM → ENRESERVDT → C.EDB 17:28 → C.2T 21:16
PROVIDERS: ADMIT Hospitalist; ATTEND Hospitalist
DX: R07.9 Chest pain, unspecified (principal); I34.0 Nonrheumatic mitral (valve) insufficiency; I10 Essential (primary) hypertension; I51.9 Heart disease, unspecified; K21.9 Gastro-esophageal reflux disease without esophagitis; K44.9 Diaphragmatic hernia without obstruction or gangrene; F32.9 Major depressive disorder, single episode, unspecified; M19.90 Unspecified osteoarthritis, unspecified site; Z79.82 Long term (current) use of aspirin; Z79.899 Other long term (current) drug therapy